=== PATIENT | female | born 1990 | race Caucasian/White ===

== ENCOUNTER 2022-12-30 16:53 | Emergency (ER) | payer MEDICAID ==
[~2022-12-30] VITALS: Ht 165.1 cm; Wt 113.0 kg
[~2022-12-30 16:53] MED LIST: PREN-88
[2022-12-30] MEDS ORDERED: ONDANSETRON HCL 4MG/2ML INJ IV STA (18:08)
[2022-12-30] MEDS ORDERED: KETOROLAC 30MG/ML VIAL IV STA (18:08)
[2022-12-30] MEDS ORDERED: SODIUM CHLORIDE 0.9% 1,000 ML IV ONE (18:15)
[2022-12-30 18:17] LABS: CLARITY URINE CLEAR (CLEAR); COLOR URINE YELLOW (YELLOW); KETONES URINE NEGATIVE (NEGATIVE); LEUKOCYTE ESTERASE URINE 1+ (NEGATIVE); NITRITE URINE NEGATIVE (NEGATIVE); OCCULT BLOOD URINE 3+ (NEGATIVE); PH URINE 6.5 (4.5-8.0); PROTEIN URINE NEGATIVE (NEGATIVE); SPECIFIC GRAVITY URINE 1.006 (1.005-1.030); UROBILINOGEN URINE 0.2 E.U./dL (0.2-1.0)
[2022-12-30] MEDS ORDERED: KETOROLAC 60MG/2ML VIAL IM ONE (18:30)
[2022-12-30] MEDS ORDERED: HYDROCODONE/ACETAMINOPHEN 5/325MG TABLET PO ONE (18:30)
[2022-12-30 18:33] LABS: BASOPHILS % 1.1 % (0.0-2.0); EOSINOPHILS % 1.1 % (0.0-5.0); HEMATOCRIT. 40.6 % (36.0-48.0); HEMOGLOBIN. 13.4 g/dL (12.0-16.0); LYMPHOCYTES % 16.7 % (20.0-50.0); MEAN CORPUSCULAR HEMOGLOBIN 27.4 pg (28.0-32.0); MEAN CORPUSCULAR VOLUME 83.1 fL (81.0-99.0); MONOCYTES % 5.4 % (2.0-8.0); NEUTROPHILS % 75.7 % (40.0-76.0); PLATELET 440 x1000/uL (130-400); RED BLOOD CELL COUNT 4.89 mill/uL (4.2-5.4); RED CELL DISTRIBUTION WIDTH 14.2 % (11.6-14.6)
[2022-12-30 18:39] LABS: HCG SCREEN NEGATIVE
[2022-12-30 18:40] LABS: CHLORIDE 105 mEq/L (98-107)
[2022-12-30 18:42] LABS: INR 0.9; PROTHROMBIN TIME 9.8 sec (9.6-11.0)
[2022-12-30 20:03] VITALS: BP 125/71
== END 2022-12-30 22:56 | disposition home or self-care (01) ==
LOC: ER 16:53
DX: R10.31 Right lower quadrant pain (principal); F32.A Depression, unspecified; F12.10 Cannabis abuse, uncomplicated
CPT/HCPCS: 36415; 74176; 80053; 81003; 83690; 84703; 85025; 85610; 96361; 96374; 96375; 99285; J1885; J2405; J7030; Z7610

== ENCOUNTER 2025-02-10 17:30 | Emergency (ER) | payer MEDICAID ==
[~2025-02-10] VITALS: Ht 167.6 cm; Wt 100.0 kg
[~2025-02-10 17:30] MED LIST changes: +NITR-87 MT; +PROP20TA19 PO
[2025-02-10 17:34] VITALS: O2SAT 99
[2025-02-10 17:37] VITALS: BP 134/89; PULSE 100; RESP 16; TEMP 37.2; O2SAT 100
[2025-02-10] MEDS ORDERED: CEPH500C2 MT (18:38)
[2025-02-10] MEDS ORDERED: SULF1TAB48 MT (18:38)
[2025-02-10] MEDS ORDERED: BACI1OIN7 TP (18:39)
[2025-02-10] MEDS: TETANUS, DIPHTHERIA, PERTUSSIS VAC/PF 0.5ML (>10YR OLD) IM ONE (19:36)
== END 2025-02-10 19:36 | disposition home or self-care (01) ==
LOC: ER 17:30
DX: T21.21XA Burn of second degree of chest wall, initial encounter (principal); T31.0 Burns involving less than 10% of body surface; Z79.899 Other long term (current) drug therapy; X58.XXXA Exposure to other specified factors, initial encounter; Y93.89 Activity, other specified; Y92.89 Other specified places as the place of occurrence of the external cause; Y99.8 Other external cause status
CPT/HCPCS: 90715; 90471; 99283; Z7610